=== PATIENT | male | born 1975 | race Caucasian/White ===

== ENCOUNTER 2016-11-25 14:05 | Emergency (ER) | payer BC ==
[~2016-11-25 14:05] MED LIST: AUGMENTIN 875-1 EAC2 PO; CALAN80 M1 PO; CLINDAMYCIN HC150 M1 PO; DELTASONE10 MG PO; EXCEDRIN MIGRA1 EAC3 PO; FLEXERIL10 MG PO; IMITREX100 M2 PO; LORTAB ELIXIR480 ML PO; MOBIC15 M1 PO; NO HOME MEDICATION XX; NO HOME MEDS; NORCO 5/325 TAB1 TAB PO; NORCO 7.5-3251 EACH PO; PEN-VEE K500 MG PO; PERCOCET 5/3251 TAB PO; TYLENOL WITH C1 EACH PO
[2016-11-25] MEDS ORDERED: TOPROL XL25 M1 PO (15:54)
[2016-11-25] MEDS ORDERED: TOPIRAMATE25 M3 PO (15:55)
[2016-11-25] MEDS ORDERED: PREDNISONE10 M1 PO (16:03)
[2016-11-25] MEDS ORDERED: FIORICET 50-301 EAC1 PO (17:05)
== END 2016-11-25 17:30 ==
LOC: EDMED 14:05
DX: R51 Headache (principal); F17.210 Nicotine dependence, cigarettes, uncomplicated
CPT/HCPCS: J0780; J1100; J1200; J1885